=== PATIENT | male | born 1965 | race Caucasian/White ===

== ENCOUNTER 2023-09-25 14:36 | Emergency (ER) | payer SELFPAY ==
[~2023-09-25] VITALS: Ht 172.7 cm; Wt 86.9 kg
[2023-09-25 14:43] VITALS: BP 143/93; PULSE 92; TEMP 97.7; O2SAT 97
[2023-09-25] MEDS: TETRACAINE HCL/PF 0.5% OPTH 4 ML BTL OP ONE (16:00)
[2023-09-25] MEDS: FLUORESCEIN OPTH STRIP 1 MG OP ONE (16:00)
[2023-09-25] MEDS ORDERED: CIPR10DR4 RIGHT EYE (16:38)
[2023-09-25] MEDS ORDERED: DIPH25TA53 PO (16:38)
== END 2023-09-25 16:46 | disposition home or self-care (01) ==
LOC: MED 14:36
DX: S05.02XA Injury of conjunctiva and corneal abrasion without foreign body, left eye, initial encounter (principal); S05.01XA Injury of conjunctiva and corneal abrasion without foreign body, right eye, initial encounter; Z79.899 Other long term (current) drug therapy; X58.XXXA Exposure to other specified factors, initial encounter; Y93.89 Activity, other specified; Y92.89 Other specified places as the place of occurrence of the external cause; Y99.8 Other external cause status
CPT/HCPCS: 99283